=== PATIENT | female | born 1965 | race Two or more races ===

== ENCOUNTER 2016-05-06 10:35 | Emergency (ER) | payer OTHER ==
[~2016-05-06] VITALS: Ht 160 cm; Wt 56.7 kg
[2016-05-06 10:50] VITALS: BP 98/62
--- NOTE | 2016-05-06 11:06 | Emergency Room Report ---
History of Present Illness General Chief Complaint: Upper Respiratory Illness Source: Patient Present Illness HPI Patient presents with 4 days of URI sy. Sore throat, cough, muscle aches, feeling feverish and sinus congestion. No flu vaccination. No GI symptoms. 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 OTC meds have helped somewhat. Some wheezes briefly at night. No h/o asthma, but has child with disease. No dysuria. Postmenopausal. 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 Last Menstrual Period: 05/05/16 Now: No Reviewed Nursing Documentation: PMH: Agreed, PSxH: Agreed Nursing Documentation-PMH Past Medical History: No Stated History Review of Systems All Other Systems: negative except mentioned in HPI Physical Exam Vital Signs Date Time Temp Pulse Resp B/P Pulse Ox O2 Delivery O2 Flow Rate FiO2 05/06/16 10:45 98.4 80 16 98/62 100 Room Air General Appearance: well appearing, no apparent distress, GCS 15, non-toxic Head: normocephalic, atraumatic Eyes: bilateral eye PERRL, bilateral eye normal inspection ENT: hearing grossly normal, normal pharynx, normal voice, TMs + canals normal , moist mucus membranes Neck: full range of motion, supple Respiratory: lungs clear, normal breath sounds, no respiratory distress, speaking full sentences Cardiovascular #1: regular rate, rhythm Gastrointestinal: normal inspection, non tender Musculoskeletal: gait/station normal, normal range of motion, no calf tenderness Neurologic: alert - grossly normal neuro, normal gait Psychiatric: mood/affect normal Skin: no rash Medical Decision Making Diagnostic Impression: Primary Impression: Upper respiratory infection Qualified Codes: J06.9 - Acute upper respiratory infection, unspecified ER Course Pt with 4 days of URI sy. DDx; flu, viral, bronchitis. No evidence of pneumonia. Beyond period where anti-flu meds would help. Not appear bacterial. Some bronchospasm. Plan symptomatic treatment. Improved. Stable for outpatient observation and treatment. Last Vital Signs Date Time Temp Pulse Resp B/P Pulse Ox O2 Delivery O2 Flow Rate FiO2 05/06/16 11:22 98.4 80 16 98/62 100 Room Air Status: improved Disposition: HOME, SELF-CARE Condition: Stable Scripts Albuterol Sulfate* (ALBUTEROL SULFATE MDI*) 8.5 Gm Hfa.aer.ad 2 PUFF INH Q6H Y for wheezing, #1 INH 0 Refills Prov: Adam Alvarez M.D. 05/06/16 Chlorpheniramine Maleate (Chlorpheniramine Maleate) 4 Mg Tablet 4 MG PO Q6HR, #14 TAB Prov: Adam Alvarez M.D. 05/06/16 Ibuprofen* (MOTRIN*) 600 Mg Tablet 600 MG ORAL Q8H Y for For Pain, #20 TAB 0 Refills Prov: Adam Alvarez M.D. 05/06/16 Promethazine HCl/Codeine (Prometh-Codein 6.25-10 mg/5 ml) 5 Ml Syrup 5 ML PO Q6HR Y for For Cough, #60 ML Prov: Adam Alvarez M.D. 05/06/16 Adam Alvarez M.D. May 06, 2016 11:06
[2016-05-06] MEDS ORDERED: IBUPROFEN600 MG ORAL (11:09)
[2016-05-06] MEDS ORDERED: CHLORPHENIRAMINE4 M1 PO (11:09)
[2016-05-06] MEDS ORDERED: PROMETH-CODEIN 65 ML PO (11:09)
[2016-05-06] MEDS ORDERED: ALBUTEROL SULF8.5 GM INH (11:09)
[2016-05-06 11:22] VITALS: BP 98/62
== END 2016-05-06 11:22 | disposition home or self-care (01) ==
LOC: EMR 11:15
DX: J06.9 Acute upper respiratory infection, unspecified (principal)
CPT/HCPCS: 99282